=== PATIENT | male | born 1975 | race Two or more races ===

== ENCOUNTER 2020-05-18 17:17 | Emergency (ER) | payer BC, MEDICAID ==
[2020-05-18 17:44] VITALS: BP 123/83
[2020-05-18] MEDS ORDERED: HYDROCODONE/ACETAMINOPHEN 5-325 MG TABLET PO ONE (18:22)
--- NOTE | 2020-05-18 18:23 | ER Document Report ---
HPI - HPI Patient complains to provider of: RIght leg pain Time Seen by Provider: 05/18/20 18:18 Pain Level: 5 Context: 44-year-old male past medical history significant for asthma presents to the emergency room complaining of right calf pain. Patient states he was coming down off a ladder when he heard "a sudden pop" to his right calf. He denies falling or injuring his leg in any other way. States is able to walk but is painful. No history of previous trauma or injury to his right lower leg. Did not take any medications for his pain. No recent travel, no history of DVTs or PEs in the past. Associated Symptoms: None Exacerbated by: Walking Relieved by: Denies Similar symptoms previously: No Recently seen / treated by doctor: No - ROS Systems Reviewed and Negative: Yes All other systems reviewed and negative - NEURO Neurology: DENIES: Weakness - MUSCULOSKELETAL Musculoskeletal: REPORTS: Extremity pain. DENIES: Back Pain - DERM Skin Color: Normal, [place] Skin Problems: None Past Medical History - General Information source: Patient - Social History Smoking Status: Never Smoker Chew tobacco use (# tins/day): No Frequency of alcohol use: None Drug Abuse: None Family History: Reviewed & Not Pertinent Patient has homicidal ideation: No Pulmonary Medical History: Reports: Hx Asthma Renal/ Medical History: Reports: Hx Kidney Stones Vertical Provider Document - CONSTITUTIONAL Agree With Documented VS: Yes Exam Limitations: No Limitations General Appearance: Mild Distress - INFECTION CONTROL TRAVEL OUTSIDE OF THE [place] IN LAST 30 DAYS: No - HEENT HEENT: Atraumatic, Normocephalic - NECK Neck: Normal Inspection, Supple - RESPIRATORY Respiratory: Breath Sounds Normal, No Respiratory Distress - CARDIOVASCULAR Cardiovascular: Regular Rate, Regular Rhythm, No Murmur - MUSCULOSKELETAL/EXTREMETIES Musculoskeletal/Extremeties: FROM, Non-Tender - Nontender to palpation over the right lower extremity. There is no obvious deformity noted. - NEURO Level of Consciousness: Awake, Alert, Appropriate Motor/Sensory: No Motor Deficit, No Sensory Deficit Notes: Positive right pedal pulse. Capillary refill less than 3 seconds. Negative Homans. Course - Re-evaluation Re-evalutation: 05/18/20 18:28 Well score of 0. Low risk for DVT 05/18/20 18:48 Patient is resting comfortably with decreased pain. Reviewed x-ray results with patient. 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 He was counseled to rest elevate his leg weightbearing as tolerated. Use crutches as provided by nursing staff. Tylenol and or Motrin as needed for pain. Outpatient follow-up with primary care physician if not improving in 2 to 3 days. Patient was given strict return to the emergency room guidelines. Return for any new or worsening symptoms. All questions were answered. Patient verbalized understanding and agrees with plan of care. - Vital Signs Vital signs: Temp Pulse Resp BP Pulse Ox 99.2 F 81 18 123/83 97 05/18/20 17:38 05/18/20 17:38 05/18/20 17:38 05/18/20 17:38 05/18/20 17:38 - Diagnostic Test Radiology reviewed: Reports reviewed Discharge - Discharge Clinical Impression: Traumatic rupture of plantaris muscle Qualifiers: Encounter type: initial encounter Laterality: right Qualified Code(s): S86.111A - Strain of other muscle(s) and tendon(s) of posterior muscle group at lower leg level, right leg, initial encounter Condition: Stable Disposition: HOME, SELF-CARE Instructions: Use of Crutches ([facility]), Muscle Strain ([facility]) Additional Instructions: Rest and elevate your leg. Weightbearing as tolerated. Use crutches as needed. Tylenol and/or Motrin as needed for pain. Follow-up with primary care physician if not improving in 2 to 3 days. Referrals: JEIMY ARTEAGA DO [NO LOCAL MD] - Follow up as needed
--- NOTE | 2020-05-18 18:40 | RADIOLOGY REPORT (SQ) ---
EXAM DESCRIPTION: TIBIA FIBULA RIGHT IMAGES COMPLETED DATE/TIME: 05/18/2020 6:32 pm REASON FOR STUDY: injury COMPARISON: None. NUMBER OF VIEWS: Two views. TECHNIQUE: Two radiographic images acquired of the right tibia and fibula to include the knee and an kle in at least one projection. LIMITATIONS: None. FINDINGS: MINERALIZATION: Normal. BONES: No acute fracture or dislocation. No worrisome bone lesions. SOFT TISSUES: No obvious swelling or foreign body. OTHER: No other significant finding. IMPRESSION: NEGATIVE STUDY OF THE RIGHT TIBIA AND FIBULA. NO RADIOGRAPHIC EVIDENCE OF ACUTE INJURY. TECHNICAL DOCUMENTATION: JOB ID: [id number] 2010 [employer]- All Rights Reserved Reading location - IP/workstation name: [email or web address]
== END 2020-05-18 19:35 | disposition home or self-care (01) ==
LOC: ER 17:17
DX: S86.111A Strain of other muscle(s) and tendon(s) of posterior muscle group at lower leg level, right leg, initial encounter (principal); M79.604 Pain in right leg; X50.0XXA Overexertion from strenuous movement or load, initial encounter
CPT/HCPCS: 99283

== ENCOUNTER 2020-07-29 06:36 | Emergency (ER) | payer BC, MEDICAID ==
[2020-07-29] MEDS ORDERED: KETOROLAC TROMETHAMINE INJ/PF 30 MG/1 ML SDV IV ONE (08:18)
--- NOTE | 2020-07-29 08:19 | ER Document Report ---
ED General - General Chief Complaint: Flank Pain Stated Complaint: FLANK PAIN Time Seen by Provider: 07/29/20 08:17 Primary Care Provider: REAGAN FLOYD FNP [Primary Care Provider] - Follow up as needed Mode of Arrival: Ambulatory Information source: Patient Notes: 44-year-old male patient presents the emergency department complaints of left flank pain. Patient reports pain is constant but increases with movement or breathing. He states that he does have a history of kidney stones, states this feels similar. He went to urgent care yesterday, they gave him a injection of Toradol, he states this completely relieved his pain for about 8 hours. He denies any fever, chills, nausea, vomiting, dysuria or urinary frequency. TRAVEL OUTSIDE OF THE [place] IN LAST 30 DAYS: No - Related Data Allergies/Adverse Reactions: No Known Allergies Allergy (Verified 05/18/20 18:18) Past Medical History - General Information source: Patient - Social History Smoking Status: Never Smoker Chew tobacco use (# tins/day): No Frequency of alcohol use: None Drug Abuse: None Family History: Reviewed & Not Pertinent Pulmonary Medical History: Reports: Hx Asthma Renal/ Medical History: Reports: Hx Kidney Stones Review of Systems - Review of Systems Constitutional: No symptoms reported EENT: No symptoms reported Cardiovascular: No symptoms reported Respiratory: No symptoms reported Gastrointestinal: No symptoms reported Genitourinary: Flank pain Male Genitourinary: No symptoms reported Musculoskeletal: No symptoms reported Skin: No symptoms reported Hematologic/Lymphatic: No symptoms reported Neurological/Psychological: No symptoms reported Physical Exam - Vital signs Vitals: Temp Pulse Resp BP Pulse Ox 97.8 F 71 20 126/83 H 94 07/29/20 06:41 07/29/20 06:41 07/29/20 06:41 07/29/20 06:41 07/29/20 06:41 - Notes Notes: PHYSICAL EXAMINATION: GENERAL: Well-appearing, well-nourished and in no acute distress. HEAD: Atraumatic, normocephalic. EYES: Pupils equal round and reactive to light, extraocular movements intact, sclera anicteric, conjunctiva are normal. ENT: Nares patent, oropharynx clear without exudates. Moist mucous membranes. NECK: Normal range of motion, supple without lymphadenopathy LUNGS: Breath sounds clear to auscultation bilaterally and equal. No wheezes rales or rhonchi. HEART: Regular rate and rhythm without murmurs ABDOMEN: Soft, nontender, nondistended abdomen. No guarding, no rebound. No masses appreciated. Musculoskeletal: Tenderness to palpation in the left lumbar paraspinous region, no vertebral tenderness, step-off or deformity. No CVA tenderness. NEUROLOGICAL: Cranial nerves grossly intact. Normal speech, normal gait. Normal sensory, motor exams PSYCH: Normal mood, normal affect. SKIN: Warm, Dry, normal turgor, no rashes or lesions noted. Course - Re-evaluation Re-evalutation: Patient appears well, nontoxic, he initially presented thinking he had a kidney stone. He has no hematuria. His CT is negative for any stones. I do believe this is a musculoskeletal strain in the left lumbar region. Patient will be started on ibuprofen, Flexeril and lidocaine patches. Encouraged him to follow- up with his primary care provider. He does report pain has improved since arriving to the emergency department. ED return precautions discussed, patient verbalized understanding and agreement with same. - Vital Signs Vital signs: Temp Pulse Resp BP Pulse Ox 98.2 F 78 16 132/71 H 99 07/29/20 10:40 07/29/20 10:40 07/29/20 10:40 07/29/20 10:40 07/29/20 10:40 - Laboratory Result Diagrams: 07/29/20 08:10 07/29/20 08:10 Discharge - Discharge Clinical Impression: Flank pain, Musculoskeletal strain Condition: Stable Disposition: HOME, SELF-CARE Additional Instructions: Your lab work, urine and CAT scan were normal today. There is no evidence of any kidney stones. There was no blood in your urine. I do believe your pain is coming from a musculoskeletal strain. Please take the medications as prescribed. Call your primary care provider to schedule a follow-up appointment. Return to the emergency department with any new or worsening concerns to include development of fever. Prescriptions: Cyclobenzaprine HCl [Flexeril 10 mg Tablet] 10 mg PO TIDP PRN #21 tab PRN Reason: Lidocaine [Lidoderm 5% (700 mg) Transdermal Patch] 1 patch TP DAILY #30 adh..patch Ibuprofen [Motrin 800 mg Tablet] 800 mg PO Q8H PRN #30 tab PRN Reason: Referrals: REAGAN FLOYD FNP [Primary Care Provider] - Follow up as needed
[2020-07-29] MEDS ORDERED: MORPHINE SULFATE 10 MG/ML INJ IV ONE (08:34)
[2020-07-29 08:36] LABS: ABSOLUTE EOSINOPHILS # (AUTO) 0.1 10^3/uL (0.0-0.6); ABSOLUTE MONOCYTES (AUTO) 0.4 10^3/uL (0.1-1.4); MONOCYTES % (AUTO) 5.9 % (3-13); TOTAL CELLS COUNTED % (AUTO) 100 %
[2020-07-29 08:37] LABS: APPEARANCE,URINE CLEAR; BILIRUBIN,URINE NEGATIVE (NEGATIVE); COLOR,URINE YELLOW; GLUCOSE, URINE NEGATIVE (NEGATIVE); KETONES,URINE NEGATIVE (NEGATIVE); LEUKOCYTE ESTERASE,URINE NEGATIVE (NEGATIVE); NITRITE,URINE NEGATIVE (NEGATIVE); PROTEIN,URINE NEGATIVE (NEGATIVE); URINE SPECIFIC GRAVITY 1.017; UROBILINOGEN,URINE NEGATIVE mg/dL (<2.0)
[2020-07-29 08:42] LABS: ABSOLUTE LYMPHOCYTES (AUTO) 1.9 10^3/uL (0.5-4.7); ABSOLUTE NEUT (AUTO) 4.1 10^3/uL (1.7-8.2); BASOPHILS % (AUTO) 0.5 % (0-2); EOSINOPHILS % (AUTO) 2.1 % (0-6); HEMATOCRIT 42.5 % (37.9-51.0); LYMPHOCYTES % (AUTO) 28.8 % (13-45); MEAN CORPUSCULAR HEMOGLOBIN 33.1 pg (27.0-33.4); MEAN CORPUSCULAR HGB CONC 35.2 g/dL (32.0-36.0); MEAN CORPUSCULAR VOLUME 94 fl (80-97); PLATELET COUNT 271 10^3/uL (150-450); RED BLOOD COUNT 4.52 10^6/uL (4.35-5.55); RED CELL DISTRIBUTION WIDTH 12.6 % (11.5-14.0); SEGMENTED NEUTROPHILS % (AUTO) 62.7 % (42-78); WHITE BLOOD COUNT 6.6 10^3/uL (4.0-10.5)
[2020-07-29 08:54] LABS: ALBUMIN 4.1 g/dL (3.5-5.0); ALKALINE PHOSPHATASE 97 U/L (38-126); ANION GAP 8 (5-19); ASPARTATE AMINO TRANSFERASE 22 U/L (17-59); BILIRUBIN,DIRECT 0.2 mg/dL (0.0-0.4); BILIRUBIN,TOTAL 0.7 mg/dL (0.2-1.3); BLOOD UREA NITROGEN 11 mg/dL (7-20); CALCIUM 9.3 mg/dL (8.4-10.2); CARBON DIOXIDE 26 mmol/L (22-30); CHLORIDE 105 mmol/L (98-107); GLUCOSE 101 mg/dL (75-110); POTASSIUM 4.5 mmol/L (3.6-5.0)
[2020-07-29] MEDS ORDERED: ONDANSETRON HCL INJ/PF 4 MG/2 ML SDV IV ONE (09:24)
[2020-07-29] MEDS ORDERED: CYCLOBENZAPRINE HCL 10 MG TABLET PO ONE (09:24)
--- NOTE | 2020-07-29 09:26 | RADIOLOGY REPORT (SQ) ---
EXAM DESCRIPTION: CT ABD/PELVIS NO ORAL OR IV IMAGES COMPLETED DATE/TIME: 07/29/2020 7:47 am REASON FOR STUDY: L flank pain COMPARISON: None. TECHNIQUE: CT scan of the abdomen and pelvis performed without intravenous or oral contrast. Images reviewed with lung, soft tissue, and bone windows. Reconstructed coronal and sagittal MPR images revi ewed. All images stored on PACS. All CT scanners at this facility use dose modulation, iterative reconstruction, and/or weight based d osing when appropriate to reduce radiation dose to as low as reasonably achievable (ALARA). [facility]: Dose Right [facility]: CareDose [facility]: Dose Right [facility]: Teradose 4D [facility]: [employer] RADIATION DOSE: CT Rad equipment meets quality standard of care and radiation dose reduction techniq ues were employed. CTDIvol: 12.4 mGy. DLP: 677 mGy-cm.mGy. LIMITATIONS: None. FINDINGS: LOWER CHEST: No significant findings. No nodules or infiltrates. NON-CONTRASTED LIVER, SPLEEN, ADRENALS: Evaluation limited by lack of IV contrast. No identified sign ificant masses. PANCREAS: No masses. No peripancreatic inflammatory changes. GALLBLADDER: No identified stones by CT criteria. No inflammatory changes to suggest cholecystitis. RIGHT KIDNEY AND URETER: No suspicious masses. Assessment limited by lack of IV contrast. No signif icant calcifications. No hydronephrosis or hydroureter. LEFT KIDNEY AND URETER: No suspicious masses. Assessment limited by lack of IV contrast. No signifi cant calcifications. No hydronephrosis or hydroureter. AORTA AND RETROPERITONEUM: No aneurysm. No retroperitoneal masses or adenopathy. BOWEL AND PERITONEAL CAVITY: No obvious masses or inflammatory changes. No free fluid. APPENDIX: Normal. PELVIS, BLADDER, AND ABDOMINAL WALL:No abnormal masses. No free fluid. Bladder normal. BONES: No significant findings. OTHER: No other significant finding. IMPRESSION: NO SIGNIFICANT OR ACUTE PROCESS IN THE ABDOMEN OR PELVIS. COMMENT: Quality ID # [id number]: Final reports with documentation of one or more dose reduction techniques (e.g., Automated exposure control, adjustment of the mA and/or kV according to patient size, use of iterative reconstruction technique) TECHNICAL DOCUMENTATION: JOB ID: [id number] 2010 [employer]- All Rights Reserved Reading location - IP/workstation name: [email or web address]
[2020-07-29 10:51] VITALS: BP 132/71
== END 2020-07-29 10:40 | disposition home or self-care (01) ==
LOC: ER 06:36
DX: R10.9 Unspecified abdominal pain (principal); T14.8XXA Other injury of unspecified body region, initial encounter; X58.XXXA Exposure to other specified factors, initial encounter; J45.909 Unspecified asthma, uncomplicated; Z87.442 Personal history of urinary calculi
CPT/HCPCS: 99285; 96374; 96375; 36415; 83690; 85025; 80053; 81001; 74176; J1885; J2270; J2405